=== PATIENT | female | born 1940 | race African-American/Black ===

== ENCOUNTER 2016-06-22 16:48 | Emergency (ER) | payer MEDICARE ==
[~2016-06-22] VITALS: Ht 162.6 cm; Wt 76.0 kg
[2016-06-22] MEDS ORDERED: HYDROCODONE/ACETAMINOPHEN 5/325MG TABLET PO ONE (17:45)
[2016-06-22 18:10] LABS: BASOPHILS % 0.7 % (0.0-2.0); EOSINOPHILS % 2.3 % (0.0-5.0); HEMOGLOBIN. 12.4 g/dL (12.0-16.0); LYMPHOCYTES % 32.9 % (20.0-50.0); MEAN CORPUSCULAR HEMOGLOBIN 29.5 pg (28.0-32.0); MEAN CORPUSCULAR HGB CONC 32.7 g/dL (31.0-37.0); MEAN CORPUSCULAR VOLUME 90.1 fL (81.0-99.0); MEAN PLATELET VOLUME 9.4 fl (7.4-10.4); MONOCYTES % 10.2 % (2.0-8.0); NEUTROPHILS % 53.9 % (40.0-76.0); PLATELET 173 x1000/uL (130-400); RED BLOOD CELL COUNT 4.22 mill/uL (4.2-5.4); WHITE BLOOD COUNT 6.7 x1000/uL (4.5-11.0)
[2016-06-22 18:14] LABS: CHLORIDE 108 mEq/L (98-107); INDEX HEMOLYSI 1 (1-3); INDEX ICTERIC 1 (1-4); INDEX LIPEMIC 1 (1-3)
[2016-06-22 18:16] LABS: INR 1.5; PARTIAL THROMBOPLASTIN TIME 31.3 sec (24.0-34.0); PROTHROMBIN TIME 15.2 sec
[2016-06-22 18:23] LABS: ALBUMIN 3.9 g/dL (3.4-5.0); ANION GAP 10; CALCIUM 9.1 mg/dL (8.5-10.1); CARBON DIOXIDE 27 mEq/L (21-32); UREA NITROGEN BLOOD 13 mg/dL (7-21); eGFR > 60 mL/min (>60)
[2016-06-22 18:24] LABS: ALANINE AMINOTRANSFERASE 14 IU/L (13-61)
[2016-06-22 20:27] LABS: CLARITY URINE CLEAR (CLEAR); COLOR URINE YELLOW (YELLOW); GLUCOSE URINE NEGATIVE (NEGATIVE); KETONES URINE 1+ (NEGATIVE); LEUKOCYTE ESTERASE URINE NEGATIVE (NEGATIVE); NITRITE URINE NEGATIVE (NEGATIVE); OCCULT BLOOD URINE NEGATIVE (NEGATIVE); PROTEIN URINE NEGATIVE (NEGATIVE)
[2016-06-22 21:30] VITALS: BP 136/97
== END 2016-06-22 22:02 | disposition home or self-care (01) ==
LOC: ER 16:48
DX: G31.9 Degenerative disease of nervous system, unspecified (principal); I25.2 Old myocardial infarction
CPT/HCPCS: 36415; 70450; 71010; 72125; 72170; 73562; 80053; 81003; 85025; 85610; 85730; 93005; 99285